=== PATIENT | male | born 1960 | race Caucasian/White ===

== ENCOUNTER → 2021-03-13 | Outpatient (CLI) | payer MEDICARE, OTHER ==
[~2021-03-13] MED LIST: ACID CONTROL20 MG; AMLODIPINE BESYL5 MG PO; FISHOIL; MOBIC15 MG PO; NEXIUM40 MG; NORCO 5-325 TA1 EACH PO; NORFLEX100 MG PO; OSTEO BI FLEX; PERCOCET 5-3251 EACH PO; TRAMADOL
== END ==
LOC: M.ULTRA 08:00
PROVIDERS: ATTEND Family Medicine
DX: K76.0 Fatty (change of) liver, not elsewhere classified (principal); N20.0 Calculus of kidney; R79.89 Other specified abnormal findings of blood chemistry